=== PATIENT | male | born 1970 | race Two or more races ===

== ENCOUNTER → 2018-01-14 | Outpatient (CLI) | payer OTHER ==
[~2018-01-14] MED LIST: LEVE-14 PO
== END ==
LOC: AMB 23:15
PROVIDERS: ATTEND Nurse Practitioner
DX: R55 Syncope and collapse (principal); R10.9 Unspecified abdominal pain; R11.0 Nausea; E16.2 Hypoglycemia, unspecified
CPT/HCPCS: A0425; A0427

== ENCOUNTER 2018-01-15 00:04 | Emergency (ER) | payer OTHER ==
--- NOTE | 2018-01-15 00:10 | ER Report ---
History and Physical Time Seen By MD: 00:10 HPI/ROS CHIEF COMPLAINT: Loss of consciousness, seizure-like activity, urinary incontinence HISTORY OF PRESENT ILLNESS: Patient is a 47-year-old male here with the above complaints. Patient and patient's family report that he begins to have nausea and abdominal pain while he was driving. He pulled the car over and complained of dizziness and lightheadedness followed by seizure-like activity for approximately 2 minutes with associated urinary incontinence. Patient had a similar episode approximately one year ago in October time he was diagnosed with hypokalemia and was repleted. Patient denies trauma to the head, anticoagulation , neck pain, fevers, chest pain, shortness of breath, burning with urination, alcohol or illicit drug use. Patient reports that he is otherwise healthy and takes no medications. He describes the abdominal pain as diffuse and he describes his bowels as hyperactive. He does admit to mild headache, abdominal pain and mild nausea. REVIEW OF SYSTEMS: Constitutional: No fever, + chills. Eyes: No discharge. ENT: No sore throat. Cardiovascular: No chest pain, no palpitations. Respiratory: No cough, no shortness of breath. Gastrointestinal: + diffuse abdominal pain, no vomiting. Genitourinary: No hematuria, + urinary incontinence during seizure like activity Musculoskeletal: No back pain. Skin: No rashes. Neurological: + mild headache. Allergies: Coded Allergies: Penicillins (Verified Allergy, Severe, ANAPHALAXSIS, 01/15/18) Home Meds Active Scripts Levetiracetam (KEPPRA) 500 Mg Tablet, 500 MG PO BID for 30 Days, #60 TAB Prov:TRIP VILLA DO 01/15/18 Constitutional Vital Sign - Last 24 Hours 01/15/18 01/15/18 01/15/18 01/15/18 00:06 00:19 00:30 00:34 Temp 99.0 Pulse 89 89 87 Resp 26 17 25 B/P (MAP) 123/76 109/79 (89) Pulse Ox 97 95 98 O2 Delivery Room Air 01/15/18 01/15/18 01/15/18 01/15/18 01:12 01:18 01:23 01:30 Pulse 98 94 Resp 18 17 B/P (MAP) 111/78 (89) 106/67 (80) Pulse Ox 94 97 7/05/2501/15/18 01/15/18 01/15/18 01:37 01:42 01:57 02:00 Pulse 90 89 85 Resp 14 15 15 B/P (MAP) 100/77 (85) Pulse Ox 99 98 99 01/15/18 02:12 Pulse 86 Pulse Ox 96 Physical Exam General Appearance: The patient is alert, has no immediate need for airway protection and no signs of toxicity. Mild distress due to pain Eyes: Pupils equal and round no pallor or injection. ENT, Mouth: Mucous membranes are moist. Respiratory: There are no retractions, lungs are clear to auscultation. Cardiovascular: Regular rate and rhythm. Gastrointestinal: Abdomen is soft and + diffusely tender on examination, no masses, bowel sounds normal. Neurological: No focal neurological deficits Skin: Warm and dry, no rashes. Musculoskeletal: Neck is supple non tender. Extremities are nontender, nonswollen and have full range of motion. DIFFERENTIAL DIAGNOSIS: After history and physical exam differential diagnosis was considered for a seizure including but not limited to electrolyte abnormality, alcohol withdrawal, medication noncompliance, head injury, and breakthrough seizure. Medical Decision Making Data Points Result Diagram: 01/15/18 0000 01/15/18 0000 Laboratory Hematology Test 01/15/18 00:00 Red Blood Count 5.26 M/uL (4.00-5.60) Mean Corpuscular Volume 88.4 fL (80.0-96.0) Mean Corpuscular Hemoglobin 30.8 pg (26.0-33.0) Mean Corpuscular Hemoglobin Concent 34.8 g/dL (32.0-36.0) Red Cell Distribution Width 13.6 % (11.5-14.5) Mean Platelet Volume 8.4 fL (7.2-11.1) Neutrophils (%) (Auto) 77.5 % (39.4-72.5) Lymphocytes (%) (Auto) 13.4 % (17.6-49.6) Monocytes (%) (Auto) 6.1 % (4.1-12.4) Eosinophils (%) (Auto) 2.7 % (0.4-6.7) Basophils (%) (Auto) 0.3 % (0.3-1.4) Nucleated RBC Relative Count (auto) 0.1 /100WBC Neutrophils # (Auto) 10.6 K/uL (2.0-7.4) Lymphocytes # (Auto) 1.8 K/uL (1.3-3.6) Monocytes # (Auto) 0.8 K/uL (0.3-1.0) Eosinophils # (Auto) 0.4 K/uL (0.0-0.5) Basophils # (Auto) 0.0 K/uL (0.0-0.1) Nucleated RBC Absolute Count (auto) 0.01 K/uL Sodium Level 141 mmol/L (137-145) Potassium Level 3.7 mmol/L (3.5-5.0) Chloride Level 103 mmol/L (98-107) Carbon Dioxide Level 26 mmol/L (22-30) Blood Urea Nitrogen 16 mg/dl (9-21) Creatinine 1.10 mg/dl (0.66-1.25) Glomerular Filtration Rate Calc > 60.0 Random Glucose 99 mg/dl (75-110) Lactate 1.5 mmol/L (0.7-2.1) Calcium Level 9.3 mg/dl (8.4-10.2) Magnesium Level 1.9 mg/dl (1.7-2.2) Total Bilirubin 0.7 mg/dl (0.2-1.3) Aspartate Amino Transf (AST/SGOT) 45 U/L (0-35) Alanine Aminotransferase (ALT/SGPT) 51 U/L (0-56) Alkaline Phosphatase 85 U/L (0-126) Total Protein 8.2 g/dl (6.3-8.2) Albumin 4.5 g/dl (3.5-5.0) Lipase 68 U/L (23-300) Chemistry Test 01/15/18 00:00 White Blood Count 13.7 k/uL (4.5-11.0) Red Blood Count 5.26 M/uL (4.00-5.60) Hemoglobin 16.2 g/dL (14.0-18.0) Hematocrit 46.5 % (42.0-52.0) Mean Corpuscular Volume 88.4 fL (80.0-96.0) Mean Corpuscular Hemoglobin 30.8 pg (26.0-33.0) Mean Corpuscular Hemoglobin Concent 34.8 g/dL (32.0-36.0) Red Cell Distribution Width 13.6 % (11.5-14.5) Platelet Count 253 K/uL (150-450) Mean Platelet Volume 8.4 fL (7.2-11.1) Neutrophils (%) (Auto) 77.5 % (39.4-72.5) Lymphocytes (%) (Auto) 13.4 % (17.6-49.6) Monocytes (%) (Auto) 6.1 % (4.1-12.4) Eosinophils (%) (Auto) 2.7 % (0.4-6.7) Basophils (%) (Auto) 0.3 % (0.3-1.4) Nucleated RBC Relative Count (auto) 0.1 /100WBC Neutrophils # (Auto) 10.6 K/uL (2.0-7.4) Lymphocytes # (Auto) 1.8 K/uL (1.3-3.6) Monocytes # (Auto) 0.8 K/uL (0.3-1.0) Eosinophils # (Auto) 0.4 K/uL (0.0-0.5) Basophils # (Auto) 0.0 K/uL (0.0-0.1) Nucleated RBC Absolute Count (auto) 0.01 K/uL Glomerular Filtration Rate Calc > 60.0 Lactate 1.5 mmol/L (0.7-2.1) Calcium Level 9.3 mg/dl (8.4-10.2) Magnesium Level 1.9 mg/dl (1.7-2.2) Total Bilirubin 0.7 mg/dl (0.2-1.3) Aspartate Amino Transf (AST/SGOT) 45 U/L (0-35) Alanine Aminotransferase (ALT/SGPT) 51 U/L (0-56) Alkaline Phosphatase 85 U/L (0-126) Total Protein 8.2 g/dl (6.3-8.2) Albumin 4.5 g/dl (3.5-5.0) Lipase 68 U/L (23-300) EKG/Imaging Imaging CHEST PA AND LAT HISTORY: Loss of consciousness. Seizure. COMPARISON: None. TECHNIQUE: PA and lateral views of the chest. FINDINGS: Pulmonary: Lungs are clear. There is no pneumothorax or pleural effusion. Cardiomediastinal: Cardiac and mediastinal silhouettes are within normal limits. Bones/soft tissues: No acute osseous abnormality. There is mild degenerative change of the spine. The visible abdomen is normal. IMPRESSION: 1. No acute cardiopulmonary process. HEAD W/O CONTRAST HISTORY: Loss of consciousness. Seizure. COMPARISON: None. TECHNIQUE: Axial images were obtained from the skull base to the vertex without contrast. Sagittal and coronal reformats were performed. One of the following dose optimization techniques was utilized in the performance of this exam: Automated exposure control; adjustment of the mA and/ or kV according to the patient's size; or use of an iterative reconstruction technique. Specific details can be referenced in the facility's radiology CT exam operational policy. CONTRAST: None. FINDINGS: Brain: No intracranial hemorrhage, mass or edema. There is mild calcification of the internal carotid arteries. Ventricles and sulci: Sulci are normal. Ventricular size and configuration is normal. Osseous structures: Intact. Paranasal sinuses and mastoids: There is mild mucosal thickening of the left ethmoid sinus. Mastoids are clear. Orbits and soft tissues: There is cerumen within the left external auditory canal. IMPRESSION: 1. No acute intracranial abnormality. ED Course/Re-evaluation ED Course Patient is a 47-year-old male here with complaints of headache, nausea, abdominal pain followed by seizure like activity (~2 min) and urinary incontinence. The urinary incontinence is new this episode as compared to a prior episode last year in October. At that time, the patient was diagnosed with hypokalemia and was repleted reportedly without further workup per patient report. Patient appears well at time of initial evaluation, alert and oriented, denies neck pain, fevers or focal neurological deficits. CT imaging of the head was unremarkable for intracranial pathology. Chest x-ray showed no acute findings. Patient was noted to have a mild leukocytosis of 13,000 however he remains afebrile and hemodynamically stable. I discussed the patient with Dr. Morrison (hospitalist) who recommended that the patient be placed on Keppra and follow up with a neurologist outpatient. I discussed this option with the family and they voiced understanding and agreement. I advised the patient that he was not able to drive until he followed up with a neurologist and he voiced understanding. She was well-appearing at time of discharge, hemodynamically stable in no acute distress. He received his 1st dose of Keppra prior to discharge. Decision to Disposition Date: Jan 15, 2018 Decision to Disposition Time: 03:04 Depart Departure Latest Vital Signs Vital Signs Date Time Temp Pulse Resp B/P (MAP) Pulse Ox O2 Delivery O2 Flow Rate FiO2 01/15/18 02:12 86 96 01/15/18 02:00 100/77 (85) 01/15/18 01:57 15 01/15/18 00:06 99.0 Room Air Impression: Primary Impression: Seizure Condition: Improved Disposition: HOME OR SELF-CARE New Scripts Levetiracetam (KEPPRA) 500 Mg Tablet 500 MG PO BID for 30 Days, #60 TAB Prov: TRIP VILLA DO 01/15/18 Departure Forms: ER Transition Record, Medications Reconciliation Patient Instructions: Levetiracetam (By mouth), New-Onset Seizure in Adults (ED ) Additional Instructions: Please follow up with neurology in the next several days for evaluation of seizure-like activity. You have been provided a prescription for Keppra 500 mg for 30 days. Please follow up promptly with your family doctor to obtain refills for this medication. Please take one tablet or 500 mg of Keppra twice daily. Please do not drive or operate vehicles until you are seen by neurology. Please return promptly if he develop recurrent seizures, rashes, headache, blurred vision, neck pain, fevers. TRIP VILLA DO Jan 15, 2018 00:10
[2018-01-15] MEDS ORDERED: NS(*) 0.9% 1000 ML BAG 1,000 ML IV ONE (00:23)
[2018-01-15] MEDS ORDERED: METOCLOPRAMIDE 10 MG/2 ML SDV IVP ONE (00:25)
[2018-01-15] MEDS ORDERED: EMS NS 0.9%(*) 1000 ML BAG 1,000 ML IV ONE (00:30)
[2018-01-15 01:05] LABS: PLATELET COUNT, AUTOMATED 253 K/uL (150-450)
--- NOTE | 2018-01-15 01:33 | RADIOLOGY IMAGING REPORT ---
FACILITY: [facility] - [place] PATIENT NAME: Bandar Owen : 1970 MR: [id number] V: [id number] EXAM DATE: ORDERING PHYSICIAN: TRIP VILLA TECHNOLOGIST: Location: [facility] - [place] Patient: Bandar Owen : 1970 Visit/Account:[id number] Date of Sevice: 01/15/2018 CHEST PA AND LAT HISTORY: Loss of consciousness. Seizure. COMPARISON: None. TECHNIQUE: PA and lateral views of the chest. FINDINGS: Pulmonary: Lungs are clear. There is no pneumothorax or pleural effusion. Cardiomediastinal: Cardiac and mediastinal silhouettes are within normal limits. Bones/soft tissues: No acute osseous abnormality. There is mild degenerative change of the spine. The visible abdomen is normal. IMPRESSION: 1. No acute cardiopulmonary process. Report Dictated By: Precious Denise at 01/15/2018 1:29 AM Report E-Signed By: Precious Denise at 01/15/2018 1:30 AM WSN:[id number]
--- NOTE | 2018-01-15 01:38 | RADIOLOGY IMAGING REPORT ---
FACILITY: [facility] - [place] PATIENT NAME: Bandar Owen : 1970 MR: [id number] V: [id number] EXAM DATE: ORDERING PHYSICIAN: TRIP VILLA TECHNOLOGIST: Location: [facility] - [place] Patient: Bandar Owen : 1970 Visit/Account:[id number] Date of Sevice: 01/15/2018 HEAD W/O CONTRAST HISTORY: Loss of consciousness. Seizure. COMPARISON: None. TECHNIQUE: Axial images were obtained from the skull base to the vertex without contrast. Sagittal an d coronal reformats were performed. One of the following dose optimization techniques was utilized in the performance of this exam: Autom ated exposure control; adjustment of the mA and/or kV according to the patient's size; or use of an i terative reconstruction technique. Specific details can be referenced in the facility's radiology CT exam operational policy. CONTRAST: None. FINDINGS: Brain: No intracranial hemorrhage, mass or edema. There is mild calcification of the internal carotid arteries. Ventricles and sulci: Sulci are normal. Ventricular size and configuration is normal. Osseous structures: Intact. Paranasal sinuses and mastoids: There is mild mucosal thickening of the left ethmoid sinus. Mastoids are clear. Orbits and soft tissues: There is cerumen within the left external auditory canal. IMPRESSION: 1. No acute intracranial abnormality. Report Dictated By: Precious Denise at 01/15/2018 1:30 AM Report E-Signed By: Precious Denise at 01/15/2018 1:33 AM WSN:[id number]
[2018-01-15 02:00] VITALS: BP 100/77
--- NOTE | 2018-01-15 02:15 | EKG ---
FACILITY: [facility] PATIENT NAME: FLYNN JOHNSON : [id number] MR: [id number] V: [id number] EXAM DATE: ORDERING PHYSICIAN: TRIP VILLA TECHNOLOGIST: RAIZA Test Reason : SEIZURE, LOC Blood Pressure : / mmHG Vent. Rate : 086 BPM Atrial Rate : 086 BPM P-R Int : 190 ms QRS Dur : 080 ms QT Int : 366 ms P-R-T Axes : 059 027 031 degrees QTc Int : 437 ms Normal sinus rhythm Normal ECG No previous ECGs available Confirmed by LATONIA KHAN ([id number]) on 01/15/2018 6:43:01 AM Referred By: Confirmed By:LATONIA KHAN
[2018-01-15] MEDS ORDERED: levETIRAcetam 500 MG TAB PO ONE (02:20)
[2018-01-15] MEDS ORDERED: LEVE-14 PO (02:23)
== END 2018-01-15 02:56 | disposition home or self-care (01) ==
LOC: ER 00:15
DX: R56.9 Unspecified convulsions (principal)
CPT/HCPCS: 70450; 71046; 83605; 83690; 83735; 85025; 93005; 96361; 96374; 99285; J2765; J7030; 82040; 82247; 82310; 82374; 82435; 82565; 82947; 84075; 84132; 84155; 84295; 84450; 84460; 84520